=== PATIENT | female | born 1970 | race Caucasian/White ===

== ENCOUNTER → 2019-11-20 | Day surgery (SDC) | payer OTHER ==
[~2019-11-20] MED LIST: ADDERALL 30 MG30 MG PO; FENTANYL CITRATE/PF 100MCG/2 ML INJ ONE; KETAMINE HCL INJ 50 MG/ML 10 ML VIAL ONE; LIDOCAINE HCL 2% LOCAL INJ 5 ML SDV VIAL INJ ONE; METFORMIN HCL500 MG PO; METOCLOPRAMIDE HCL 10 MG/2ML VIAL ONE; MIDAZOLAM HCL 2 MG/2 ML VIAL ONE; PANTOPRAZOLE 40 MG 10ML VIAL ONE; PEPCID AC10 MG PO; PROPOFOL IV EMULSION 10 MG/ML 20 ML VIAL ONE; ZESTRIL10 MG PO
[2019-11-20 14:35] VITALS: BP 123/81
--- NOTE | 2019-11-20 15:34 | Operative Report ---
DATE OF PROCEDURE: 11/20/2019 SURGEON: Igor Limon MD PROCEDURES: EGD with esophageal dilatation and biopsies. INDICATIONS FOR PROCEDURE: Dysphagia, acid reflux, bloating. MEDICATIONS: The patient was done under MAC, please see anesthesiologist's note. PROCEDURE IN DETAIL: With the patient in left lateral decubitus position, a flexible fiberoptic Olympus gastroscope was introduced into the esophagus under direct visualization without any difficulty. A single erosion was noted in the distal esophagus. There was a mild stricture noted at the GE junction, that was dilated to size 52-[place] Abernathy. A minute nodule was also noted at the GE junction, that was biopsied. The scope was then advanced with ease into the stomach, traversing a small sliding hiatal hernia. Mucosa overlying the antrum and the body revealed some patchy erythema and [id number] edema, and biopsies were obtained, sent to stain for H. pylori. Pylorus was of normal contour and shape, it was intubated with ease and the scope was advanced all the way to the second portion of the duodenum. Biopsies were obtained from the proximal second portion and the duodenal bulb to rule out sprue. The scope was then withdrawn back into the stomach and retroflexed, and mucosa overlying the fundus and cardia appeared to be within normal limits. The scope was then straightened out, it was subsequently withdrawn. The patient tolerated the procedure well. IMPRESSION: 1. Distal erosive esophagitis. 2. Esophageal stricture at GE junction, dilated to size 52-[place] Abernathy. 3. Minute nodule at GE junction, biopsied. 4. A small sliding hiatal hernia. 5. Gastritis, biopsied, biopsies sent to stain for H. pylori. 6. Rule out sprue. PLAN: 1. Follow up histology. 2. Initiate Protonix 40 mg one p.o. q.a.m. a.c. Igor Limon MD [facility] [place]/[facility]EN[facility] /[id number]
== END | disposition home or self-care (01) ==
LOC: ENDO 11:42
PROVIDERS: ATTEND Internal Medicine Gastroenterology
DX: K22.10 Ulcer of esophagus without bleeding (principal); K22.2 Esophageal obstruction; K29.70 Gastritis, unspecified, without bleeding; K44.9 Diaphragmatic hernia without obstruction or gangrene; K92.9 Disease of digestive system, unspecified; K29.80 Duodenitis without bleeding; K21.0 Gastro-esophageal reflux disease with esophagitis; R03.0 Elevated blood-pressure reading, without diagnosis of hypertension; Z88.5 Allergy status to narcotic agent; Z88.0 Allergy status to penicillin; Z88.2 Allergy status to sulfonamides; Z87.891 Personal history of nicotine dependence; I10 Essential (primary) hypertension; Z01.810 Encounter for preprocedural cardiovascular examination; Z11.59 Encounter for screening for other viral diseases
CPT/HCPCS: 36415; 43239; 43450; 82948; 87635; 93005; C9113; J2001; J2250; J2704; J2765; J3010

== ENCOUNTER → 2025-03-24 | Day surgery (SDC) | payer BC, OTHER ==
[~2025-03-24] MED LIST changes: +B-121000 MC2; +D3-5000125 MCG; +DEXTROSE 5% 250ML 0 ML IV ONE; +DEXTROSE 50% SYRINGE 50 ML IV ONE; +INSULIN REGULAR, HUMAN 100 UNIT/1 ML ONE; -KETAMINE HCL INJ 50 MG/ML 10 ML VIAL ONE; +LACTATED RINGER'S 1,000 ML ONE; +MAGNESIUM100 MG; +OZEMPIC0.25 MG/02 SQ; -PANTOPRAZOLE 40 MG 10ML VIAL ONE; +PREBIOTIC FIBER2 GM; +PROBIOTIC & AC1 EACH PO; +PROPOFOL IV EMULSION 0 ML IV ONE; +PROTONIX20 MG PO
[2025-03-24 12:13] VITALS: TEMP 98.2
[2025-03-24 12:25] VITALS: BP 128/85; PULSE 78; RESP 17; O2SAT 99
[2025-03-27 19:12] LABS: ENDOMYSIAL ANTIBODIES, IGA Negative (Negative)
[2025-03-27 21:26] LABS: TISSUE TRANSGLUTAMINASE IGA AB <2 U/mL (0-3)
== END | disposition home or self-care (01) ==
LOC: ENDO 09:18
PROVIDERS: ATTEND Internal Medicine Gastroenterology
DX: K22.2 Esophageal obstruction (principal); K29.70 Gastritis, unspecified, without bleeding; K29.80 Duodenitis without bleeding; K20.90 Esophagitis, unspecified without bleeding; K44.9 Diaphragmatic hernia without obstruction or gangrene; K21.9 Gastro-esophageal reflux disease without esophagitis; Z87.19 Personal history of other diseases of the digestive system; E11.9 Type 2 diabetes mellitus without complications; E66.01 Morbid (severe) obesity due to excess calories; N20.0 Calculus of kidney; R03.0 Elevated blood-pressure reading, without diagnosis of hypertension; Z71.89 Other specified counseling; F90.9 Attention-deficit hyperactivity disorder, unspecified type; Z88.6 Allergy status to analgesic agent; Z88.0 Allergy status to penicillin; Z88.2 Allergy status to sulfonamides; Z01.810 Encounter for preprocedural cardiovascular examination; Z79.899 Other long term (current) drug therapy; Z68.30 Body mass index [BMI] 30.0-30.9, adult; Z71.3 Dietary counseling and surveillance
CPT/HCPCS: 36415; 43239; 43450; 82784; 82948; 83516; 86256; 93005; J2003; J2250; J2470; J2704; J2765; J3010; J7121; J7799